=== PATIENT | female | born 2005 ===

== ENCOUNTER 2024-08-08 06:24 | Day surgery (SDC) | payer OTHER, SELFPAY | END 2024-08-08 10:32 | disposition home or self-care (01) | LOC: GI 06:24 | PROVIDERS: ATTENDING PHYSICIAN Internal Medicine Gastroenterology | DX: R19.4 Change in bowel habit (principal); K52.9 Noninfective gastroenteritis and colitis, unspecified | CPT/HCPCS: 45380; 88305 ==